=== PATIENT | male | born 1965 | race Caucasian/White ===

== ENCOUNTER 2017-09-18 23:20 | Emergency (ER) | payer OTHER ==
[~2017-09-18] VITALS: Ht 165.1 cm; Wt 68.0 kg
[2017-09-18] MEDS ORDERED: ADDERALL 30 MG30 MG PO (23:26)
[2017-09-18] MEDS ORDERED: METHADONE HCL 110 M1 (23:26)
[2017-09-18] MEDS ORDERED: FOCALIN10 MG PO (23:26)
[2017-09-18] MEDS ORDERED: FLEXERIL PO (23:27)
[2017-09-19] MEDS ORDERED: NORCO 5-325 TA1 EACH PO (00:18)
[2017-09-19] MEDS ORDERED: FLEXERIL PO (00:18)
[2017-09-19 00:27] VITALS: BP 152/85
== END 2017-09-19 00:27 | disposition home or self-care (01) ==
LOC: M.ERS 23:20
DX: S30.0XXA Contusion of lower back and pelvis, initial encounter (principal); S70.11XA Contusion of right thigh, initial encounter; Z88.0 Allergy status to penicillin; W18.30XA Fall on same level, unspecified, initial encounter; Y93.89 Activity, other specified; Y92.89 Other specified places as the place of occurrence of the external cause; Y99.8 Other external cause status

== ENCOUNTER 2018-09-18 21:45 | Emergency (ER) | payer OTHER ==
[~2018-09-18] VITALS: Ht 165.1 cm; Wt 62.6 kg
[~2018-09-18 21:45] MED LIST: ADDERALL 30 MG30 MG PO; FLEXERIL PO; FOCALIN10 MG PO; METHADONE HCL 110 M1; NORCO 5-325 TA1 EACH PO
[2018-09-18] MEDS ORDERED: TORADOL 10 MG T10 MG PO (23:03)
[2018-09-18 23:16] VITALS: BP 124/80
== END 2018-09-18 23:16 | disposition home or self-care (01) ==
LOC: M.ERS 21:45
DX: S39.012A Strain of muscle, fascia and tendon of lower back, initial encounter (principal); S13.8XXA Sprain of joints and ligaments of other parts of neck, initial encounter; Z88.0 Allergy status to penicillin; W00.0XXA Fall on same level due to ice and snow, initial encounter; Y92.89 Other specified places as the place of occurrence of the external cause; Y93.89 Activity, other specified; Y99.8 Other external cause status